=== PATIENT | female | born 1990 | race American Indian/Alaskan Native ===

== ENCOUNTER 2018-11-18 20:17 | Emergency (ER) | payer SELFPAY ==
--- NOTE | 2018-11-18 21:14 | Emergency Department Report ---
ED HPI - General Chief complaint: Vaginal Bleeding Stated complaint: VAGINAL BLEED Time Seen by Provider: 11/18/18 21:08 Source: patient Mode of arrival: Stretcher Limitations: No Limitations - History of Present Illness Initial comments: Patient is a 28-year-old female that presents emergency room for vaginal bleeding. Patient states she has been spotting for 10 days but approximately one hour ago she had a large volume vaginal bleeding take place with clots. Patient states she started cramping and then ran to the toilet thinking it was gas and and began to have vaginal bleeding. Patient states that the bleeding has improved. Patient states that cramping has improved. Patient states when it initially started the cramping was a 10 out of 10. Patient states the cramping now as a 2 out of 10. Patient states the cramping is better with rest and worse with palpation and movement. Patient states her last menstrual period was 10/08/2018. 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 Patient states she has not seen an TRANSITION COACH as of yet. Patient states she is only now she was from home tests. MD Complaint: abdominal pain, vaginal bleeding -: Sudden Location: pelvis, abdomen Radiation: none Severity: mild Severity scale (0 -10): 2 Quality: cramping Consistency: intermittent Improves with: rest Worsens with: movement Associated symptoms: vaginal bleeding, abdominal pain Vaginal bleeding: heavy, clots :: Yes OB History - Current : no complications OB History - Previous Pregnancies: no complications Last menstrual period: 10/08/18 Pre- care: none - Related Data : 3 Para: 1 Ab: 1 Allergies Allergy/AdvReac Type Severity Reaction Status Date / Time No Known Allergies Allergy Unverified 11/18/18 20:51 ED Review of Systems ROS: Stated complaint: VAGINAL BLEED Other details as noted in HPI Constitutional: denies: chills, fever Eyes: denies: eye pain, eye discharge, vision change ENT: denies: ear pain, throat pain Respiratory: denies: cough, shortness of breath, wheezing Cardiovascular: denies: chest pain, palpitations Endocrine: no symptoms reported Gastrointestinal: abdominal pain. denies: nausea, diarrhea Genitourinary: denies: urgency, dysuria, discharge Musculoskeletal: denies: back pain, joint swelling, arthralgia Skin: denies: rash, lesions Neurological: denies: headache, weakness, paresthesias Psychiatric: denies: anxiety, depression Hematological/Lymphatic: denies: easy bleeding, easy bruising ED Past Medical Hx - Past Medical History Previous Medical History?: No - Surgical History Past Surgical History?: Yes Additional Surgical History: ellective . - Family History Family history: no significant - Social History Smoking Status: Current Every Day Smoker Substance Use Type: None ED Physical Exam - General Limitations: No Limitations General appearance: alert, in no apparent distress - Head Head exam: Present: atraumatic, normocephalic - Eye Eye exam: Present: normal appearance - ENT ENT exam: Present: mucous membranes moist - Neck Neck exam: Present: normal inspection - Respiratory Respiratory exam: Present: normal lung sounds bilaterally. Absent: respiratory distress - Cardiovascular Cardiovascular Exam: Present: regular rate, normal rhythm. Absent: systolic murmur, diastolic murmur, rubs, gallop - GI/Abdominal GI/Abdominal exam: Present: soft, tenderness (suprapubic tenderness), normal bowel sounds - Extremities Exam Extremities exam: Present: normal inspection - Back Exam Back exam: Present: normal inspection - Neurological Exam Neurological exam: Present: alert, oriented X3 - Psychiatric Psychiatric exam: Present: normal affect, normal mood - Skin Skin exam: Present: warm, dry, intact, normal color. Absent: rash ED Course Vital Signs 11/18/18 11/18/18 11/18/18 20:45 20:51 21:17 Temperature 98.0 F Pulse Rate 76 Respiratory 16 16 Rate Blood Pressure 119/76 Blood Pressure [Right] O2 Sat by Pulse 99 100 Oximetry 11/18/18 11/18/18 11/18/18 21:30 21:46 22:00 Temperature Pulse Rate Respiratory Rate Blood Pressure 118/77 118/77 120/71 Blood Pressure [Right] O2 Sat by Pulse 100 100 100 Oximetry 11/18/18 11/18/18 11/18/18 22:16 22:30 22:46 Temperature Pulse Rate Respiratory Rate Blood Pressure 120/71 126/80 126/80 Blood Pressure [Right] O2 Sat by Pulse 100 100 Oximetry 11/18/18 11/18/18 11/18/18 23:06 23:12 23:30 Temperature Pulse Rate Respiratory Rate Blood Pressure 120/71 120/71 113/75 Blood Pressure [Right] O2 Sat by Pulse 100 70 L 98 Oximetry 11/19/18 11/19/18 11/19/18 00:21 00:30 01:00 Temperature Pulse Rate Respiratory Rate Blood Pressure 113/75 113/76 100/61 Blood Pressure [Right] O2 Sat by Pulse 88 100 100 Oximetry 11/19/18 11/19/18 02:51 04:00 Temperature 98.6 F 98.0 F Pulse Rate 71 72 Respiratory 16 16 Rate Blood Pressure Blood Pressure 111/63 118/73 [Right] O2 Sat by Pulse 99 99 Oximetry - Reevaluation(s) Reevaluation #1: Patient complains of increased cramping and more vaginal bleeding. Patient states she had a large amount of blood, soaked through her underwear and pad and then the cramping is decreased. Pelvic exam done. Tissue removed. Cervical os appears to be closed. Nurse in room during entire pelvic exam. No cervical tenderness noted. Quant and ultrasound are pending. Tissue removed and placed in a sterile container and will be sent to the pathology lab. 11/18/18 22:40 Reevaluation #2: She states her pain is better. Patient states she is having minimal cramping. Patient states the vaginal bleeding has slowed down. 11/19/18 01:05 Reevaluation #3: Discussed all results with patient. Patient is stable for discharge. Patient will be discharged home. Patient agrees to plan of care. Patient given discharge instructions. Patient voiced understanding of discharge instructions. 11/19/18 02:38 - Consultations Consultation #1: Discussed case with TRANSITION COACH, Dr. Jessica Guzman. Dr. Guzman agrees the patient is discharged home and can follow-up in her office Tuesday of next week. 11/19/18 01:07 ED Medical Decision Making - Lab Data Result diagrams: 11/18/18 20:58 11/18/18 20:58 - Radiology Data Radiology results: report reviewed PROCEDURE: US OB <= 14 WEEKS FETUS TECHNIQUE: OB ultrasound obtained. HISTORY: vaginal bleeding COMPARISONS: None FINDINGS: Uterus measures 8.8 x 6.0 x 9.0 cm. Endometrial stripe measures 35 mm thick. No intrauterine gestational sac visualized. IMPRESSION: Endometrial stripe measures 35 mm thick. No intrauterine gestational sac visualized. Differential diagnosis includes early intrauterine versus spontaneous versus possible ectopic . Close serial ultrasound follow-up and correlation of beta hCG levels recommended.. - Medical Decision Making Patient is a 30-year-old female that presents emergency room for abdominal cramping and vaginal bleeding. Patient found to have clots and passed tissue per vagina. Patient had a pelvic exam done prior to ultrasound and tissue was r emoved and sent to pathology. Patient's ultrasound shows no gestational sac in the uterus. Patient clinically appears to have a spontaneous . Patient's type and screen done and is O+. TRANSITION COACH consultation done for follow- up. Patient will need to follow up with TRANSITION COACH on Tuesday of next week or repeat ultrasound and beta hCG checks. Patient stable for discharge. Patient was discharged home. - Differential Diagnosis miscarriage. Vaginal bleeding. Abdominal cramping. Critical care attestation.: If time is entered above; I have spent that time in minutes in the direct care of this critically ill patient, excluding procedure time. ED Disposition Clinical Impression: Vaginal bleeding, Spontaneous , Abdominal cramping Disposition: TO HOME OR SELFCARE Is pt being admited?: No Does the pt Need Aspirin: No Condition: Stable Instructions: Spontaneous Miscarriage (ED) Additional Instructions: Patient to follow-up with primary care in 2-3 days. Patient to follow up with TRANSITION COACH in 3 days. Patient to take Tylenol or ibuprofen when necessary for pain. Patient to return to ER if condition worsens. Patient to take a vitamin. Patient to increase water. Patient to rest. Referrals: AYAZ ISABEL MD [Primary Care Provider] - 2-3 Days JESSICA GUZMAN MD [Staff Physician] - 2-3 Days Time of Disposition: 02:13
[2018-11-18 21:30] LABS: Basophils % (Auto) 0.5 % (0.0-1.8); Eosinophils % (Auto) 0.5 % (0.0-4.3); Hemoglobin 10.6 gm/dl (10.1-14.3); Lymphocytes % (Auto) 42.5 % (13.4-35.0); Mean Corpuscular HGB Conc 32 % (30-34); Mean Corpuscular Volume 72 fl (79-97); Monocytes # (Auto) 0.7 K/mm3 (0.0-0.8); Monocytes % (Auto) 9.6 % (0.0-7.3); Platelet Count 218 K/mm3 (140-440); Red Blood Count 4.56 M/mm3 (3.65-5.03); Red Cell Distribution Width 14.7 % (13.2-15.2)
[2018-11-18 21:40] LABS: Alanine Aminotransferase 6 units/L (7-56); Albumin 4.3 g/dL (3.9-5); BUN/Creatinine Ratio 20; Blood Urea Nitrogen 10 mg/dL (7-17); Calcium 9.6 mg/dL (8.4-10.2); Hemolysis Index 2
--- NOTE | 2018-11-19 00:27 | Ultrasound Report ---
PROCEDURE: US OB <= 14 WEEKS FETUS TECHNIQUE: OB ultrasound obtained. HISTORY: vaginal bleeding COMPARISONS: None FINDINGS: Uterus measures 8.8 x 6.0 x 9.0 cm. Endometrial stripe measures 35 mm thick. No intrauterine gestatio nal sac visualized. IMPRESSION: Endometrial stripe measures 35 mm thick. No intrauterine gestational sac visualized. Differential shirlene gnosis includes early intrauterine versus spontaneous versus possible ectopic preg sonu. Close serial ultrasound follow-up and correlation of beta hCG levels recommended.. This document is electronically signed by Ced Rowland MD., November 19 2018 12:25:44 AM ET
[2018-11-19 04:16] VITALS: BP 118/73
== END 2018-11-19 04:16 | disposition home or self-care (01) ==
LOC: ED 20:17
DX: O03.9 Complete or unspecified spontaneous abortion without complication (principal); O99.331 Smoking (tobacco) complicating pregnancy, first trimester; Z3A.01 Less than 8 weeks gestation of pregnancy
CPT/HCPCS: 36415; 76801; 80053; 84702; 85025; 86850; 86900; 86901; 88305; 99284